=== PATIENT | male | born 1995 | race Caucasian/White ===

== ENCOUNTER 2018-11-22 21:47 | Emergency (ER) | payer SELFPAY | END 2018-11-23 00:18 | disposition home or self-care (01) | LOC: FTE 11-23 00:18 | DX: H60.503 Unspecified acute noninfective otitis externa, bilateral (principal); F17.210 Nicotine dependence, cigarettes, uncomplicated | CPT/HCPCS: 69209; 99283-25 ==

== ENCOUNTER → 2019-02-27 | Emergency (ER) | payer MEDICAID ==
[2019-02-27] MEDS: IBUPROFEN 600 MG TAB PO (16:44)
== END | disposition home or self-care (01) ==
LOC: FTE 12:34
DX: S89.91XA Unspecified injury of right lower leg, initial encounter (principal); W01.0XXA Fall on same level from slipping, tripping and stumbling without subsequent striking against object, initial encounter; Y92.9 Unspecified place or not applicable
CPT/HCPCS: 73562; 99283-25